=== PATIENT | male | born 2000 | race Caucasian/White ===

== ENCOUNTER 2022-10-09 18:38 | Emergency (ER) | payer OTHER ==
[2022-10-09] MEDS ORDERED: Acetaminophen 500 MG TAB ONE (19:08)
== END 2022-10-09 20:05 | disposition home or self-care (01) ==
LOC: CSHERS 18:38
DX: S00.83XA Contusion of other part of head, initial encounter (principal); S20.212A Contusion of left front wall of thorax, initial encounter; V49.9XXA Car occupant (driver) (passenger) injured in unspecified traffic accident, initial encounter
CPT/HCPCS: 70450; 71045